=== PATIENT | female | born 1940 | race Caucasian/White ===

== ENCOUNTER 2018-01-25 14:04 | Emergency (ER) | END 2018-01-25 18:29 | disposition home or self-care (01) ==

== ENCOUNTER 2019-03-04 20:17 | Emergency (ER) | payer MEDICARE, OTHER ==
[~2019-03-04] VITALS: Ht 149.9 cm; Wt 67.6 kg
[~2019-03-04 20:17] MED LIST: ACET325T33 PO; ASPI-903 PO; ASPIRIN; CALC-649; CEPH-443 PO; CHOL378P PO; EZET10TA31 PO; MECL12.574 PO; MELO7.5T38 PO; OMEG10006 PO; TRAZ-111 PO; TRIA1CAP PO; VALS40TA2 PO
[2019-03-04 20:30] VITALS: Ht 149.9 cm; Wt 67.6 kg
[2019-03-04] MEDS ORDERED: SOD CHLORIDE 0.9% 500 ML IV STA (21:57)
[2019-03-04] MEDS ORDERED: MECLIZINE 12.5 MG TAB PO ONE (22:00)
[2019-03-04] MEDS ORDERED: ACETAMINOPHEN 325 MG TAB PO ONE (22:00)
[2019-03-05 01:08] VITALS: BP 123/57; PULSE 58; RESP 16
== END 2019-03-05 01:08 | disposition home or self-care (01) ==
LOC: E/R 20:17
DX: R42 Dizziness and giddiness (principal); I10 Essential (primary) hypertension; R53.1 Weakness; R55 Syncope and collapse; Z79.82 Long term (current) use of aspirin
CPT/HCPCS: 36415; 70450; 71045; 80048; 81001; 84484; 85025; 85610; 85730; 93005; 99285; J7040